=== PATIENT | male | born 1980 | race Caucasian/White ===

== ENCOUNTER → 2018-06-19 | Day surgery (SDC) | payer MEDICAID, OTHER ==
[~2018-06-19] VITALS: Ht 167.6 cm; Wt 94.6 kg
[2018-06-19] VITALS (12 sets, daily range): BP systolic 117–160; BP diastolic 71–86; PULSE 66–83; RESP 14–25; Ht 167.6 cm; Wt 94.6 kg
[~2018-06-19] MED LIST: ALBUTEROL 0.083% (NEB) 2.5 MG/3 ML AMP HHN PRN; CEFAZOLIN 1 GM INJ ONE; CITA20TA11 PO; DESFLURANE 15 MIN ONE; DIPHENHYDRAMINE 50 MG INJ IV PRN; DIVA-48 PO; FENTAnyl 50 MCG/ML VIAL IV PRN; FENTAnyl 50 MCG/ML VIAL ONE; GEMF600T8 PO; GLYCOPYRROLATE 0.4 MG INJ ONE; HYDR-845 PO; HYDROmorphONE 1 MG/5 ML IV SYRINGE IV PRN; LABETALOL HCL 20MG INJ ONE; LIDOCAINE 100 MG SYRINGE ONE; MEPERIDINE 25 MG INJ IV PRN; METOCLOPRAMIDE 10 MG INJ IV PRN; MIDAZOLAM 1 MG/ML 2 ML INJ ONE; NEOSTIGMINE 10 MG INJ ONE; ONDANSETRON 4 MG INJ IV PRN; POLYMYXIN/BACITRACIN 1L IRRIG ONE; POVIDONE IODINE 10% 28.4 GM OINT ONE; PROPOFOL 200 MG INJ ONE; PROPOFOL 40 ML ONE; ROCURONIUM 50 MG INJ ONE; ROPIVACAINE 0.5 % 30 ML VIAL ONE; SUCCINYLCHOLINE CHLORIDE 100 MG/5 ML SYG IV ONE; THROMBIN(HUM PLAS)/FIBRINOG/CA 5 ML VIAL TOP ONE; morphine 2 MG INJ IV PRN
--- NOTE | 2018-06-19 07:43 | HPN ---
Date/Time of Note Date/Time of Note DATE: 06/19/18 TIME: 07:42 Interval H&P Admission Note Pt. seen H&P reviewed: No system changes DAMIÁN ARELLANO MD Jun 19, 2018 07:43
--- NOTE | 2018-06-19 09:07 | PREAC ---
Date/Time of Note Date/Time of Note DATE: 06/19/18 TIME: 09:06 Anesthesia Eval and Record Evaluation Time Pre-Procedure Interview DATE: 06/19/18 TIME: 09:06 Age 38 Sex male NPO: 8 hrs Preoperative diagnosis R knee acl tear Planned procedure R ACL reconstruction Past Medical History Past Medical History: Includes Pulm: Smoking Hx GI: Obesity Surgery & Anesthesia Issues No known issue Meds Anticoagulation: No Beta Ursula within 24 hr: No Reason Beta Ursula not given: Pt. not on B-Ursula Reported Medications Hydroxyzine Hcl* (Atarax*) 50 Mg Tab, 50 MG PO Q8H PRN for ITCHING, TAB 06/19/18 Gemfibrozil* (Gemfibrozil*) 600 Mg Tablet, 600 MG PO TID, TAB 06/19/18 Citalopram Hydrobromide* (Celexa*) 20 Mg Tablet, 20 MG PO DAILY, #30 TAB 06/19/18 Divalproex Sodium* (Depakote*) 500 Mg Tablet.dr, 500 MG PO TID, #90 TAB 06/19/18 Meds reviewed: Yes Allergies Coded Allergies: No Known Allergy (Unverified , 06/19/18) Allergies Reviewed: Yes Labs/Studies Labs Reviewed: Reviewed by anesthesiologist test: N/A Studies: ECG Pre-procedure Exam Last vitals Vital Signs Date Temp Pulse Resp B/P (MAP) Pulse Ox O2 O2 Flow FiO2 Time Delivery Rate 06/19/18 97.9 77 16 118/77 98 Room Air 08:02 (91) Airway: Adequate mouth opening, Adequate thyromental dist Mallampati: Mallampati II Teeth: Normal Lung: Normal Heart: Normal ASA Physical Status ASA physical status: 2 Emergency: None Planned Anesthetic General/MAC: ETT Planned Pain Management Single shot nerve block Pre-operative Attestations Prior to commencing anesthesia and surgery, the patient was re-evaluated, there was verification of: *The patient's identity *The results of appropriate recent lab work and preoperative vital signs *The above evaluation not changing prior to induction *Anesthetic plan, risk benefits, alternative and complications discussed with patient/family; questions answered; patient/family understands, accepts and wishes to proceed. WINTER TAYLOR Jun 19, 2018 09:07
--- NOTE | 2018-06-19 13:39 | OPR ---
Date/Time of Note Date/Time of Note DATE: 06/19/18 TIME: 13:07 Operative Report Procedure Date: Jun 19, 2018 Preoperative Diagnosis Right knee ACL tear Right knee lateral femoral condyle osteochondral lesion Postoperative Diagnosis Right knee ACL tear Right knee loose body Right knee lateral femoral condyle osteochondral lesion (8x9 mm) Right knee trochlear dysplasia Operation/Procedure Performed Right knee arthroscopy ACL reconstruction with tibialis anterior allograft Right knee arthroscopy with chondroplasty Right knee arthroscopy with loose body removal Right knee arthroscopy with debridement and microfracture of osteochondral lesion of the lateral femoral condyle with application of allograft mixed with platelet rich plasma Surgeon Damián Arellano MD Dozer Operator ARNOLDO Jimenez Anesthesia Type: general, other (fascia iliacus) Anesthesiologist: WINTER TAYLOR Tourniquet Time: 91 min at 250 mmHg Estimated Blood Loss: minimal Transfusion none Specimen none Grafts/Implants Arthrex adjustable loop tightrope Arthrex graft bolt size 9 Arthrex bio cartilage mixed with Arthrex Naseem PRP spun a 2% hematocrit Eviseal fibrin glue Complications none Pt Condition Post Procedure: stable Disposition: PACU Indications The patient is a 38 year-old male with a prolonged history of right knee giving way.. He has had continued episodes of instability with catching and clicking over the past several months. The patient has restored their range of motion and is now brought to the operating room for ACL reconstruction, possible partial medial and lateral meniscectomy versus medial and lateral meniscal repair, chondroplasty and debridement. Risk Note: The risks, benefits, and alternatives of surgery were discussed with the patient. The risks included but were not limited to infection, bleeding, damage to vessels and nerves, loss of motion, continued pain, re-tear of the meniscus, deep venous thrombosis, and complications due to anesthesia including nerve injury, myocardial infarction, stroke, , etc. The patient stated understanding of the nature of the surgical procedure and gave written and verbal consent to proceed Procedure Description Patient was met in the preoperative holding area and the correct operative extr emity was confirmed with both patient and consent. Patient was given preoperative fascial iliacus block was placed. Patient was brought to the operative theater and placed supine on the operative table. Patient was given general anesthesia and preoperative antibiotics. The right lower extremity was examined under anesthesia. Range of motion was 0 degrees of extension to 135 degrees of flexion. There was no varus or valgus or posterolateral instability. He had no instability to varus or valgus stress at 0 or 30 degrees. He had a 2+ Brown and drawer with a positive pivot shift The right lower extremity was then prepped and draped in the usual fashion. A tourniquet was placed proximally on the thigh over a bias stockinette. A standard anterolateral parapatellar stab wound was created. The knee joint was entered with a blunt-tipped obturator, followed by the 30-degree video arthroscope. An anteromedial portal was established under arthroscopic control. A routine arthroscopic survey was performed. The suprapatellar pouch was unremarkable. The undersurface of the patella was well-preserved. The patella appeared to track tightly laterally in a very flat and dysplastic trochlear groove. There was grade I chondromalacia under the lateral patella facet. The trochlea no chondromalacia. The medial and lateral gutters were inspected and there were multiple loose bodies seen in both the medial and lateral gutter that were removed that measured in total approximately 2 cm. There was no hypertrophied plica. The popliteal hiatus was entered and was unremarkable. The lateral compartment was entered. The lateral femoral condyle exhibited grade 1 chondromalacia except for a 8 x 9 mm full-thickness osteochondral lesion of the medial aspect of the lateral femoral condyle and the lateral tibial plateau showed no chondromalacia. There was no chondromalacia adjacent to the notch. There was no chondromalacia along the central aspect of the weight bearing lateral tibial plateau. The lateral meniscus was the probed and found to be stable with no tear. The osteochondral lesion was then curetted and debrided to have a firm stable pradhan and borders and then microfractured with a 0.045 mm K wire. The intercondylar notch was visualized. The anterior cruciate ligament was torn from its femoral origin. Posteromedially there was no loose body seen. The posterior cruciate ligament was visualized and appeared intact although slightly strained. The medial compartment was entered. The articular surfaces of the medial femoral condyle showed minimal chondromalacia. The meniscus was then probed and found to be stable. Attention was turned to reconstruction of the anterior cruciate ligament. Following exsanguination with an Esmarch bandage the tourniquet was inflated to 250 mm of mercury. Using a motorized shaver a limited notchplasty was performed, exposing the lateral wall and roof of the notch, identifying the [id number] position. The stump of the anterior cruciate ligament was debrided. A Vector guide was placed intra-articularly between the tibial spines in line with the anterior horn of the lateral meniscus. A Yennifer wire was then inserted into the knee through a 2 cm incision made over the proximal medial tibia. The incision was deepened through the subcutaneous tissue with subperiosteal dissection achieved. Bleeding points were coagulated with the Bovie electrocautery. The tibialis anterior allograft was prepped to create a size 9.5 graft on both the femoral and tibial side. Tibial drilling was then carried out first with a 6.5 mm followed by a 9.5 mm cylindrical reamer with the guide set at 55 degrees. The femoral tunnel was then created using a flip cutter., Depth-gauging confirmed a condyle length of 30 mm. Then reaming proceeded, with a 9.5 mm drill to a tunnel depth of 25 mm. A adjustable tight rope was selected. The graft was inserted intra-articularly and the Arthrex button was deployed. The graft was cycled for 20 cycles with 25 pounds of force to pre-load the graft. Tibial fixation was carried out and Arthrex graft both using a size 9 in 10 degrees of flexion with a posterior drawer. He was then turned back to the osteochondral lesion and the water was turned off and the wound was made and dry. The bio cartilage that had been mixed with PRP was then applied to the osteochondral lesion and then coated with fibrin glue and left to dry for at least 8 minutes. The remainder of the PRP was then placed into the tibialis anterior ACL graft. At the completion of surgery the patient had a firm stable Brown. There was a negative pivot shift. The patient had a 0 firm Brown and a negative pivot shift. There was no evidence for any roof or lateral wall impingement. The tourniquet was deflated at 91 minutes. The knee was irrigated with two liters of lactated Ringer's solution. Excess fluid was drained. The tibial wounds were then copiously irrigated with bacitracin solution and closed in layers with #0, #2-0 and #3-0 Vicryl. The skin was reapproximated with 3-0 then #4-0 Monocryl. The knee was injected with 20 cc of 0.5% plain ropivacaine. A dry sterile dressing was applied, followed by a bulky bandage and donaldo wrap, insuring no contact with the skin. A postoperative TROM brace was applied locked in full extension. The patient was awakened in the Operating Room and transported to the Recovery Room in satisfactory condition. The patient appeared to tolerate the procedure well. At the completion of surgery the patient had soft compartments, palpable pulses, and brisk capillary refill. There were no complications noted. Patient begin partial weightbearing this coming couple days. With the brace locked in extension he will begin Xarelto 10 mg Po qday starting tomorrow. Dozer Operator surgeon: An bakery assistant registered nurse assistant food service manager was needed for this case to assist with positioning of the limb during repair of the injury as well as assisting in fixation of the ACL and meniscus while holding the arthroscope. Without a qualified MIRROR INSTALLER in this case the case would be signi ficantly more complex and longer. DAMIÁN ARELLANO MD Jun 19, 2018 13:39
--- NOTE | 2018-06-23 07:37 | PAC ---
Date/Time of Note Date/Time of Note DATE: 06/23/18 TIME: 07:37 Post-Anesthesia Notes Post-Anesthesia Note Last documented vital signs Vital Signs Date Temp Pulse Resp B/P (MAP) Pulse Ox O2 O2 Flow FiO2 Time Delivery Rate 06/19/18 98.0 83 18 160/71 93 Room Air 14:35 (100) Activity: WNL Respiratory function: WNL Cardiovascular function: WNL Mental status: Baseline Pain reasonably controlled: Yes Hydration appropriate: Yes Nausea/Vomiting absent: Yes WINTER TAYLOR Jun 23, 2018 07:37
== END | disposition home or self-care (01) ==
LOC: SDS 07:06
PROVIDERS: ATTEND Orthopaedic Surgery
DX: S83.511D Sprain of anterior cruciate ligament of right knee, subsequent encounter (principal); X58.XXXD Exposure to other specified factors, subsequent encounter; M23.41 Loose body in knee, right knee; M93.261 Osteochondritis dissecans, right knee; E66.9 Obesity, unspecified; Z68.33 Body mass index [BMI] 33.0-33.9, adult
CPT/HCPCS: 29886; 29888; 82306; C9250; J0690; J2001; J2250; J2710; J2795; J3010; Z7610